=== PATIENT | female | born 1960 | race Caucasian/White ===

== ENCOUNTER 2023-08-17 12:47 | Outpatient (CLI) | payer MEDICARE, SELFPAY ==
--- NOTE | 2023-08-17 13:00 | CT_ITS ---
Patient: CAMPOS THAO Facility:?[facility] Patient ID:?[id number] Site Patient ID:?[id number]. Site :?[id number] Study:?CT-Spine Lumbar W/O 1MM CUTS-08/20/2023 10:55:48 AM Ordering Physician:SHILOH Final Report: Indication: Arthrodesis status Technique: Noncontrast axial CT of the lumbar spine with coronal and sagittal reformats are provided. Comparison: 08/09/2023 radiographs, 08/29/2019 CT Findings: Levoscoliosis with apex at L3-4. Grade 1 anterolisthesis at L3-4 and grade 2 anterolisthesis at L4-5 and retrolisthesis at L5-S1. Postop changes of laminectomies at L1-2, L2-3, L3-4, and L4-5, as well as posterior instrumented fusion from L1-L5 with bilateral pedicle screws at L1, L3 and L5 and right pedicle screw at L2 level. Abandoned screw tracts in the L4 vertebral body and left L2 pedicle. Interbody cages at L1-2, L2-3, and L4-5. Loosening of the right L2 pedicle screw (series 5 image 42 and series 4 image 113). Chronic T12 superior endplate compression fracture with anterior wedging of the vertebral body. Age indeterminate L5 inferior endplate burst compression fracture. There is a fracture component extending through the posterior inferior corner as well as bilateral L5 pedicle fractures. T11-12: No significant spinal canal stenosis or neural foraminal narrowing. Bilateral facet arthrosis and left ligamentum flavum ossification. T12-L1: No significant spinal canal stenosis or neural foraminal narrowing. L1-2: Postoperative changes. No significant spinal canal stenosis or neural foramen narrowing. L2-3: Postop changes. No significant spinal canal stenosis or neural foramen narrowing. L3-4: Grade 1 anterolisthesis. Postop changes. No significant spinal canal stenosis or neural foramen narrowing. L4-5: Grade 2 anterolisthesis. Postop changes. No significant spinal canal stenosis or neural foraminal narrowing. L5-S1: Retrolisthesis. Postop changes. Moderate facet arthrosis and uncovering of the disc. Mild spinal canal narrowing. No neural foraminal narrowing. Impression : 1. Age indeterminate L5 inferior endplate burst compression fracture. There is a fracture component extending through the posterior inferior corner as well as bilateral L5 pedicle fractures. Associated loosening of the proximal L5 pedicle screws. 2. Stable chronic T12 superior endplate compression fracture. 3. Loosening of the right L2 pedicle screw (series 5 image 42). 4. Posterior instrumented fusion from L1-L5 with interbody cages at L1-2, L2-3 and L4-5. Laminectomies at L1-2 through L4-5. 5. No significant bony spinal canal stenosis or neural foraminal narrowing. Please note that all CT scans at this facility use dose modulation, iterative reconstruction, and/or weight-based dosing when appropriate to reduce radiation dose to as low as reasonably achievable. Dictated by Justino Pizano MD @ 08/22/2023 8:42:04 AM ----- ADDENDUM ----- Addendum Report: Diffuse bone demineralization. Dictated by Justino Pizano MD @ Aug 22 2023 8:42AM Signed by:?Justino Pizano MD @08/22/2023 8:42:04 AM (Electronic Signature)
== END 2023-08-17 12:48 | disposition home or self-care (01) ==
PROVIDERS: PCP Specialist; Visit Provider Specialist
DX: Z98.1 Arthrodesis status (principal); M81.0 Age-related osteoporosis without current pathological fracture; M48.56XA Collapsed vertebra, not elsewhere classified, lumbar region, initial encounter for fracture; M48.54XS Collapsed vertebra, not elsewhere classified, thoracic region, sequela of fracture; T84.038A Mechanical loosening of other internal prosthetic joint, initial encounter; M43.26 Fusion of spine, lumbar region
CPT/HCPCS: 72131